=== PATIENT | male | born 1950 | race Caucasian/White ===

== ENCOUNTER → 2019-10-01 | Outpatient (CLI) | payer OTHER ==
[~2019-10-01] MED LIST: CENTRUM SILVER1 EAC4 PO; IBUPROFEN 200200 M1 PO; IBUPROFEN 800800 M1 PO
== END ==
LOC: CAT 09:10
DX: Z13.6 Encounter for screening for cardiovascular disorders (principal); E78.00 Pure hypercholesterolemia, unspecified; I25.10 Atherosclerotic heart disease of native coronary artery without angina pectoris

== ENCOUNTER → 2019-11-27 | Outpatient (CLI) | payer OTHER ==
[~2019-11-27] VITALS: Ht 177.8 cm; Wt 71.7 kg
[~2019-11-27] MED LIST changes: +ADVIL200 M3 PO; +ASA81BEC PO; +BENICAR40 MG PO; +BYSTOLIC10 MG PO; +CRESTOR20 MG PO; +MELOXICAM15 MG PO; +NEURONTIN 300M300 M2 PO
[2019-11-27 07:20] VITALS: BP 153/89
[2019-11-27 07:33] LABS: HEMATOCRIT 40.2 % (42.0-52.0); HEMOGLOBIN 13.2 gm/dL (14.0-18.0); MCH 30.6 pg (26.0-34.0); MCHC 32.8 g/dL (28.0-37.0); MCV 93.3 fL (80.0-100.0); RBC 4.31 mil/uL (4.50-6.00); RDW 15.4 % (10.5-14.5)
[2019-11-27 07:40] LABS: CALCIUM 10.2 mg/dL (8.5-10.1); CREATININE 0.8 mg/dL (0.7-1.3); POTASSIUM 3.9 mmol/L (3.5-5.1)
--- NOTE | 2019-11-27 13:56 | EKG ---
[place] [address] [facility] [place] [address] ELECTROCARDIOGRAM REPORT Name: MARYLIN GIBSON Room #: REG HARLEY Demarco#: [id number] Admission: 11/27/19 Attend Phys: Pipo Jaquez MD, Discharge: Date of : 54 Report #: [id number] THIS REPORT FOR: //name// 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
--- NOTE | 2019-11-27 17:20 | CATHLAB ---
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 A PINNACLE 6FR Sheath #[id number] sheath was inserted into the RFA^. Coronary angiography was performed using coronary diagnostic catheters. The right coronary system was accessed and visualized with a JR4 catheter. The left coronary system was accessed and visualized with a JL4 catheter. The left ventricle was accessed and visualized with a PIGTAIL catheter. Left ventriculogram was performed in 30 degree projection. An aortogram of the abdominal aorta was performed. Closure device was deployed with a 6 Fr MYNXGRIP 6/7F #[id number]. The patient tolerated the procedure well and there were no complications associated with the procedure. There was no hematoma. Intraoperative Conscious Sedation Sedation start time: 8.58 Case end Time: 9.24 Fentanyl 100 mcg Versed 2 mg Fluoro Time: 1.38 minutes Dose: DAP 1916.00 cGycm2 215 mGy Contrast Type and Amount: Omnipaque 145 ml [facility] [address] [place] [address] INVASIVE PROCEDURE REPORT Name: MARYLIN GIBSON Room #: [facility] Demarco#: [id number] Admission: 11/27/19 Attend Phys: Pipo Jaquez, Discharge: Date of : 54 Report #: [id number] Hemodynamics The aortic pressure is 145/64 mmHg with a mean of 55 mmHg. The left ventricular pressure is 153/10 mmHg with a mean of mmHg. The left ventricular end diastolic pressure is 28 mmHg. Conclusion #1 normal left ventricular size and systolic function EF 60% #2 abdominal aorta is mildly tortuous no aneurysm. Single bilateral renal arteries widely patent. #3 large left main giving rise to LAD and circumflex no occlusive disease #4 LAD with mild eccentric 3040% proximal lesion this vessel then extends around the apex widely patent. #5 circumflex OM nondominant with mild irregularities #6 dominant right coronary smaller in caliber giving rise to the PDA no occlusive disease Clinicians and plan: Continue aggressive risk factor modification. No indication for coronary intervention. Follow-up will be arranged. <ELECTRONICALLY SIGNED> By: Pipo Jaquez MD, FACC 11/27/191718 18 18 Pipo Jaquez MD, FACC /INF
== END | disposition home or self-care (01) ==
LOC: CATH 11-17 12:41 → EDSTATUS 11-17 21:57 → CATH 06:32
PROVIDERS: Internal Medicine Cardiovascular Disease
DX: R07.9 Chest pain, unspecified (principal); I25.10 Atherosclerotic heart disease of native coronary artery without angina pectoris; I10 Essential (primary) hypertension; Z98.890 Other specified postprocedural states; Z79.899 Other long term (current) drug therapy; Z87.891 Personal history of nicotine dependence; Z79.82 Long term (current) use of aspirin

== ENCOUNTER → 2019-12-03 | Outpatient (CLI) | payer OTHER | LOC: SJCVCIMAG 08:23 | DX: R19.09 Other intra-abdominal and pelvic swelling, mass and lump (principal); R10.31 Right lower quadrant pain; E78.5 Hyperlipidemia, unspecified ==